=== PATIENT | female | born 2000 | race Caucasian/White ===

== ENCOUNTER 2020-11-15 19:42 | Emergency (ER) | payer OTHER ==
[~2020-11-15 19:42] MED LIST: COLACE 100MG C100 MG PO; IBUPROFEN600 MG PO; KEFLEX CAP 500500 MG PO; NORCO 5-325 TA1 EACH PO; VISTARIL50 MG PO
[2020-11-15 21:25] LABS: RED BLOOD COUNT 4.77 M/UL (4.00-5.10); WHITE BLOOD COUNT 10.2 K/UL (4.5-11.0)
[2020-11-15 22:05] LABS: BUN/CREATININE RATIO 24 (0-10)
== END 2020-11-15 22:19 | disposition home or self-care (01) ==
LOC: ER1 19:42
PROVIDERS: Physician Assistant
DX: R00.2 Palpitations (principal); F17.210 Nicotine dependence, cigarettes, uncomplicated
CPT/HCPCS: 71045; 80053; 82550; 82553; 83735; 83874; 84439; 84443; 84484; 85025; 93005; 99285

== ENCOUNTER 2020-11-21 17:01 | Emergency (ER) | payer OTHER ==
[2020-11-21 18:55] LABS: HEMOGLOBIN 15.8 gm/dl (12.3-15.3); RED BLOOD COUNT 5.02 M/UL (4.00-5.10); WHITE BLOOD COUNT 13.1 K/UL (4.5-11.0)
[2020-11-21 19:11] LABS: BUN/CREATININE RATIO 22 (0-10)
== END 2020-11-21 21:40 | disposition home or self-care (01) ==
LOC: ER1 17:01
PROVIDERS: Physician Assistant
DX: R53.83 Other fatigue (principal); R53.1 Weakness; R20.2 Paresthesia of skin; F17.210 Nicotine dependence, cigarettes, uncomplicated; Z20.822 Contact with and (suspected) exposure to COVID-19
CPT/HCPCS: 0240U; 70450; 71045; 80048; 81001; 85025; 93005; 99285; J7030

== ENCOUNTER 2020-11-22 16:17 | Emergency (ER) | payer OTHER ==
[2020-11-22 17:10] LABS: HEMOGLOBIN 14.8 gm/dl (12.3-15.3); RED BLOOD COUNT 5.01 M/UL (4.00-5.10)
[2020-11-22 17:11] LABS: WHITE BLOOD COUNT 9.7 K/UL (4.5-11.0)
[2020-11-22 17:38] LABS: BUN/CREATININE RATIO 12 (0-10)
== END 2020-11-22 19:52 | disposition home or self-care (01) ==
LOC: ER1 16:17
PROVIDERS: Emergency Medicine
DX: R63.0 Anorexia (principal); R68.2 Dry mouth, unspecified; I25.2 Old myocardial infarction; I50.9 Heart failure, unspecified
CPT/HCPCS: 80053; 82550; 82553; 83690; 83735; 83874; 84100; 84484; 84703; 85025; 96374; 99284; J2405; J7030; Q9967

== ENCOUNTER 2020-11-24 16:12 | Emergency (ER) | payer OTHER | END 2020-11-24 17:32 | disposition left against medical advice (07) | LOC: ER1 16:12 | DX: Z53.21 Procedure and treatment not carried out due to patient leaving prior to being seen by health care provider (principal) | CPT/HCPCS: 93005 ==

== ENCOUNTER 2020-11-27 01:33 | Emergency (ER) | payer OTHER | END 2020-11-27 04:30 | disposition home or self-care (01) | LOC: ER1 01:33 | DX: Z23 Encounter for immunization (principal); R51.9 Headache, unspecified | CPT/HCPCS: 90471; 90715; 99283 ==

== ENCOUNTER 2021-06-17 16:00 | Emergency (ER) | payer OTHER ==
[2021-06-17 17:42] LABS: HEMOGLOBIN 14.7 gm/dl (12.3-15.3); RED BLOOD COUNT 4.6 M/UL (4.00-5.10)
[2021-06-17 18:13] LABS: BUN/CREATININE RATIO 23 (0-10)
== END 2021-06-17 19:00 | disposition home or self-care (01) ==
LOC: ER1 16:00
PROVIDERS: Physician Assistant
DX: O20.0 Threatened abortion (principal); Z3A.01 Less than 8 weeks gestation of pregnancy
CPT/HCPCS: 76830; 80048; 81001; 84702; 85025; 86900; 86901; 99284

== ENCOUNTER → 2021-06-17 | Outpatient (CLI) | payer OTHER | LOC: LAB 11:14 | DX: Z32.00 Encounter for pregnancy test, result unknown (principal) | CPT/HCPCS: 36415; 84702 ==

== ENCOUNTER 2021-06-27 18:01 | Emergency (ER) | payer OTHER ==
[2021-06-27 19:43] LABS: HEMOGLOBIN 14.2 gm/dl (12.3-15.3); RED BLOOD COUNT 4.46 M/UL (4.00-5.10); WHITE BLOOD COUNT 13.4 K/UL (4.5-11.0)
[2021-06-27 20:11] LABS: BUN/CREATININE RATIO 16 (0-10)
== END 2021-06-27 21:40 | disposition home or self-care (01) ==
LOC: ER1 18:01
PROVIDERS: Nurse Practitioner
DX: O20.9 Hemorrhage in early pregnancy, unspecified (principal); Z3A.01 Less than 8 weeks gestation of pregnancy
CPT/HCPCS: 80053; 84702; 85025; 86850; 86900; 86901; 99284

== ENCOUNTER 2022-01-31 22:02 | Emergency (ER) | payer OTHER ==
[2022-01-31 22:41] LABS: HEMOGLOBIN 11.5 gm/dl (12.3-15.3); RED BLOOD COUNT 3.78 M/UL (4.00-5.10); WHITE BLOOD COUNT 10.9 K/UL (4.5-11.0)
[2022-01-31 23:09] LABS: BUN/CREATININE RATIO 17 (0-10)
[2022-02-01] MEDS ORDERED: MACROBID 100 M100 MG PO (02:08)
== END 2022-02-01 02:20 | disposition home or self-care (01) ==
LOC: ER1 22:02
DX: O90.89 Other complications of the puerperium, not elsewhere classified (principal); R55 Syncope and collapse; O86.20 Urinary tract infection following delivery, unspecified; N39.0 Urinary tract infection, site not specified
CPT/HCPCS: 71045; 80053; 81001; 82550; 82553; 82962; 84484; 85025; 93005; 96361; 96374; 99284; J2405